=== PATIENT | male | born 1960 | race Caucasian/White ===

== ENCOUNTER → 2018-08-16 | Outpatient (CLI) | payer BC ==
--- NOTE | 2018-08-17 10:24 | RAD ---
Right upper extremity venous Doppler ultrasound HISTORY: Posterior forearm redness and pain began Tuesday. TECHNIQUE: Grayscale, color Doppler and spectral waveform analysis is performed. FINDINGS: Right internal jugular vein, subclavian vein, axillary vein, and brachial vein are patent. Right basilic and cephalic vein are patent. Radial and ulnar veins are not documented. There is a complex collection or lesion in the soft tissues at the area of concern, measures 3.1 cm x 1.3 cm x 1.6 cm, heterogeneously hypoechoic. IMPRESSION: 1. No evidence of deep venous thrombosis through the upper arm, although note that the radial and ulnar veins are not documented. 2. There is a complex lesion or collection at the area of concern in the soft tissues, may represent a hematoma or abscess. Although a mass less likely, recommend follow-up to document resolution. Electronically signed by: Kylie Brasher MD (08/16/2018 11:51 AM) [facility] DICTATED AND SIGNED BY: KYLIE BRASHER MD DATE: 08/16/18 1148 CC: WENDY CHRIS MD; LESLIE GANDHI ~ MTDD
== END | disposition home or self-care (01) ==
LOC: US 09:45
PROVIDERS: ATTEND Nurse Practitioner Family
DX: S50.01XA Contusion of right elbow, initial encounter (principal); X58.XXXA Exposure to other specified factors, initial encounter; Y93.89 Activity, other specified; Y92.89 Other specified places as the place of occurrence of the external cause; Y99.8 Other external cause status
CPT/HCPCS: 93971

== ENCOUNTER → 2020-02-29 | Outpatient (CLI) | payer BC, OTHER ==
[2020-02-29 13:19] LABS: BASO # 0.1 x10^3/uL (0.0-0.2); BASO % 1 % (0-3); EOS # 0.1 x10^3/uL (0.0-0.7); EOS % 1 % (0-3); HEMATOCRIT 45.9 % (39.0-53.0); HEMOGLOBIN 15.2 g/dL (13.0-17.5); LYMPH # 1.3 x10^3/uL (1.0-4.8); LYMPH % 16 % (24-48); MEAN CORPUSCULAR HEMOGLOBIN 31 pg (25-35); MEAN CORPUSCULAR HGB CONC 33 g/dL (31-37); MEAN CORPUSCULAR VOLUME 93 fL (79-100); MONO # 0.7 x10^3/uL (0.0-1.1); MONO % 8 % (0-9); NEUT # 6.3 x10^3uL (1.8-7.7); NEUT % 74 % (31-73); PLATELET COUNT 137 x10^3/uL (140-400); RED BLOOD COUNT 4.95 x10^6/uL (4.30-5.70); RED CELL DISTRIBUTION WIDTH 14.3 % (11.5-14.5); WHITE BLOOD COUNT 8.5 x10^3/uL (4.0-11.0)
[2020-02-29 13:28] LABS: ALBUMIN 3.9 g/dL (3.4-5.0); ALBUMIN/GLOBULIN RATIO 1.1 (1.0-1.7); CALCIUM 8.9 mg/dL (8.5-10.1); CREATININE 1.3 mg/dL (0.7-1.3); GFR 56.3; POTASSIUM 4.1 mmol/L (3.5-5.1); TOTAL BILIRUBIN 0.9 mg/dL (0.2-1.0); TOTAL PROTEIN 7.5 g/dL (6.4-8.2)
== END ==
LOC: LAB 12:20
PROVIDERS: ATTEND Family Medicine
DX: Z01.818 Encounter for other preprocedural examination (principal); I10 Essential (primary) hypertension; N40.0 Benign prostatic hyperplasia without lower urinary tract symptoms
CPT/HCPCS: 80053; 84153; 84154; 85025

== ENCOUNTER → 2020-03-12 | Outpatient (CLI) | payer BC, OTHER | END | disposition home or self-care (01) | LOC: LAB 11:48 | PROVIDERS: ATTEND Orthopaedic Surgery | DX: Z01.818 Encounter for other preprocedural examination (principal); M16.11 Unilateral primary osteoarthritis, right hip | CPT/HCPCS: 36415; 85610; 85730; 86140 ==